=== PATIENT | female | born 1985 | race Caucasian/White ===

== ENCOUNTER 2019-02-22 09:32 | Emergency (ER) | payer BC ==
[2019-02-22 09:55] VITALS: RESP 18
--- NOTE | 2019-02-22 10:00 | ED ---
Neuro HPI - General Chief Complaint: Neuro Symptoms/Deficit Stated Complaint: Facial paralysis Time Seen by Provider: 02/22/19 09:45 Source: patient, family, RN notes reviewed Mode of arrival: ambulatory Limitations: no limitations - History of Present Illness Is the patient presenting with stroke symptoms?: No Initial Comments: This is a 34-year-old female who is currently 30 weeks with her first child who has he only has History of a tonsillectomy in the past who presents with complaints of waking up this morning with right facial droop. She's having trouble closing her right eye she states it feels somewhat dry and she has some trouble with holding food and fluid in her mouth. No weakness or arms or legs no headache blurry vision nausea vomiting fevers chills sweats or other symptoms no recent cold symptoms she states no other modifying factors - Related Data Home Medications: Home Medications Medication Instructions Recorded Confirmed Pnv,Calcium 72/Iron/Folic Acid 1 tab PO DAILY 02/22/19 02/22/19 [ Plus Tablet] Previous Rx's Medication Instructions Recorded predniSONE 30 mg PO BID #14 tab 02/22/19 valACYclovir HCL [Valacyclovir] 1,000 mg PO Q8HR #21 tab 02/22/19 Allergies/Adverse Reactions: Allergies Allergy/AdvReac Type Severity Reaction Status Date / Time hydrocodone [From Vicodin] AdvReac Unknown Verified 02/22/19 10:53 Review of Systems ROS Statement: Those systems with pertinent positive or pertinent negative responses have been documented in the HPI. ROS Other: All systems not noted in ROS Statement are negative. General Exam - General Exam Comments Initial Comments: This is a well-developed well-nourished awake alert oriented 3 female Limitations: no limitations General appearance: alert, anxious Head exam: Present: atraumatic, other (Evidence a right facial palsy with the forehead included.) Eye exam: Present: normal appearance, PERRL, EOMI. Absent: scleral icterus, conjunctival injection, periorbital swelling ENT exam: Present: normal exam, mucous membranes moist Neck exam: Present: normal inspection. Absent: tenderness, meningismus, lymphad enopathy Respiratory exam: Present: normal lung sounds bilaterally. Absent: respiratory distress, wheezes, rales, rhonchi, stridor Cardiovascular Exam: Present: regular rate, normal rhythm, normal heart sounds. Absent: systolic murmur, diastolic murmur, rubs, gallop, clicks GI/Abdominal exam: Present: soft, normal bowel sounds, other (Exam consistent with the stated gestational age). Absent: distended, tenderness, guarding, rebound, rigid Rectal exam: Present: deferred Extremities exam: Present: normal inspection, full ROM, normal capillary refill. Absent: tenderness, pedal edema, joint swelling, calf tenderness Back exam: Present: normal inspection Neurological exam: Present: alert, oriented X3, other (Right facial palsy consistent with Sena's palsy). Absent: CN II-XII intact Psychiatric exam: Present: normal affect, normal mood Skin exam: Present: warm, dry, intact, normal color. Absent: rash Stroke MDM - Lab Data Result diagrams: 02/22/19 09:47 02/22/19 09:47 Lab Results 02/22/19 02/22/19 02/22/19 Range/Units 09:47 09:47 09:47 WBC 11.7 H (3.8-10.6) k/uL RBC 4.35 (3.80-5.40) m/uL Hgb 13.2 (11.4-16.0) gm/dL Hct 37.8 (34.0-46.0) % MCV 86.8 (80.0-100.0) fL MCH 30.3 (25.0-35.0) pg MCHC 34.9 (31.0-37.0) g/dL RDW 13.8 (11.5-15.5) % Plt Count 294 (150-450) k/uL Neutrophils % 82 % Lymphocytes % 13 % Monocytes % 4 % Eosinophils % 0 % Basophils % 0 % Neutrophils # 9.6 H (1.3-7.7) k/uL Lymphocytes # 1.5 (1.0-4.8) k/uL Monocytes # 0.4 (0-1.0) k/uL Eosinophils # 0.1 (0-0.7) k/uL Basophils # 0.0 (0-0.2) k/uL PT 9.8 (9.0-12.0) sec INR 0.9 (<1.2) APTT 25.7 (22.0-30.0) sec Sodium 137 (137-145) mmol/L Potassium 4.3 (3.5-5.1) mmol/L Chloride 107 (98-107) mmol/L Carbon Dioxide 21 L (22-30) mmol/L Anion Gap 9 mmol/L BUN 10 (7-17) mg/dL Creatinine 0.65 (0.52-1.04) mg/dL Est GFR (CKD-EPI)AfAm >90 (>60 ml/min/1.73 sqM) Est GFR (CKD-EPI)NonAf >90 (>60 ml/min/1.73 sqM) Glucose 91 (74-99) mg/dL Calcium 9.2 (8.4-10.2) mg/dL Magnesium 1.6 (1.6-2.3) mg/dL Total Bilirubin 0.3 (0.2-1.3) mg/dL AST 17 (14-36) U/L ALT 16 (9-52) U/L Alkaline Phosphatase 71 (38-126) U/L Creatine Kinase 31 (30-135) U/L Troponin I (0.000-0.034) ng/mL Total Protein 6.4 (6.3-8.2) g/dL Albumin 3.3 L (3.5-5.0) g/dL 02/22/19 Range/Units 09:47 WBC (3.8-10.6) k/uL RBC (3.80-5.40) m/uL Hgb (11.4-16.0) gm/dL Hct (34.0-46.0) % MCV (80.0-100.0) fL MCH (25.0-35.0) pg MCHC (31.0-37.0) g/dL RDW (11.5-15.5) % Plt Count (150-450) k/uL Neutrophils % % Lymphocytes % % Monocytes % % Eosinophils % % Basophils % % Neutrophils # (1.3-7.7) k/uL Lymphocytes # (1.0-4.8) k/uL Monocytes # (0-1.0) k/uL Eosinophils # (0-0.7) k/uL Basophils # (0-0.2) k/uL PT (9.0-12.0) sec INR (<1.2) APTT (22.0-30.0) sec Sodium (137-145) mmol/L Potassium (3.5-5.1) mmol/L Chloride (98-107) mmol/L Carbon Dioxide (22-30) mmol/L Anion Gap mmol/L BUN (7-17) mg/dL Creatinine (0.52-1.04) mg/dL Est GFR (CKD-EPI)AfAm (>60 ml/min/1.73 sqM) Est GFR (CKD-EPI)NonAf (>60 ml/min/1.73 sqM) Glucose (74-99) mg/dL Calcium (8.4-10.2) mg/dL Magnesium (1.6-2.3) mg/dL Total Bilirubin (0.2-1.3) mg/dL AST (14-36) U/L ALT (9-52) U/L Alkaline Phosphatase (38-126) U/L Creatine Kinase (30-135) U/L Troponin I <0.012 (0.000-0.034) ng/mL Total Protein (6.3-8.2) g/dL Albumin (3.5-5.0) g/dL Past Medical History Additional Past Medical History / Comment(s): gestational diabetes History of Any Multi-Drug Resistant Organisms: None Reported Past Surgical History: Tonsillectomy Past Psychological History: No Psychological Hx Reported Smoking Status: Current every day smoker Past Alcohol Use History: None Reported Past Drug Use History: None Reported Course Vital Signs 02/22/19 02/22/19 02/22/19 09:34 09:51 10:25 Temperature 98.0 F Pulse Rate 101 H 75 80 Respiratory 19 18 18 Rate Blood Pressure 141/83 147/83 132/93 O2 Sat by Pulse 100 100 100 Oximetry - Reevaluation(s) Reevaluation #1: 02/22/19 11:16 Patient's had no further symptoms she still has the right facial droop consistent with Sena's palsy. I did a long discussion with her and her family regarding findings. I did discuss case also with Dr. Olivas is covering Dr. Waller today. Visual be placed on antivirals as well as steroids. She will follow-up with Dr. Waller next week today being Monday. Return if any problems. Patient did have monitoring which was within normal limits. Disposition Clinical Impression: Sena's palsy complicating in third trimester Disposition: HOME SELF-CARE Condition: Good Instructions (If sedation given, give patient instructions): (ED), Sena Palsy (ED) Additional Instructions: Take medications as directed, take her right eye shut when necessary. Prescriptions: predniSONE 30 mg PO BID #14 tab valACYclovir HCL [Valacyclovir] 1,000 mg PO Q8HR #21 tab Is patient prescribed a controlled substance at d/c from ED?: No Referrals: Ce Tafyoa MD [Primary Care Provider] - 1-2 days
[2019-02-22 10:25] LABS: INR 0.9 (<1.2); Partial Thromboplastin Time 25.7 sec (22.0-30.0); Prothrombin Time 9.8 sec (9.0-12.0)
[2019-02-22 10:28] LABS: ALT 16 U/L (9-52); AST 17 U/L (14-36); African American GFR (CKD) >90 (>60 ml/min/1.73 sqM); Albumin 3.3 g/dL (3.5-5.0); Alkaline Phosphatase 71 U/L (38-126); Anion Gap 9 mmol/L; Blood Urea Nitrogen 10 mg/dL (7-17); Calcium 9.2 mg/dL (8.4-10.2); Carbon Dioxide 21 mmol/L (22-30); Chloride 107 mmol/L (98-107); Creatine Kinase 31 U/L (30-135); Glucose 91 mg/dL (74-99); Magnesium 1.6 mg/dL (1.6-2.3); Non-African American GFR(CKD) >90 (>60 ml/min/1.73 sqM); Potassium 4.3 mmol/L (3.5-5.1); Sodium 137 mmol/L (137-145); Total Bilirubin 0.3 mg/dL (0.2-1.3); Total Protein 6.4 g/dL (6.3-8.2)
[2019-02-22 10:40] LABS: Basophils % (A) 0 %; Eosinophils # (A) 0.1 k/uL (0-0.7); Eosinophils % (A) 0 %; HCT 37.8 % (34.0-46.0); HGB 13.2 gm/dL (11.4-16.0); Lymphocytes # (A) 1.5 k/uL (1.0-4.8); Lymphocytes % (A) 13 %; MCH 30.3 pg (25.0-35.0); MCHC 34.9 g/dL (31.0-37.0); MCV 86.8 fL (80.0-100.0); Mean Platelet Volume 6.9; Monocytes # (A) 0.4 k/uL (0-1.0); Monocytes % (A) 4 %; Neutrophils # (A) 9.6 k/uL (1.3-7.7); Neutrophils % (A) 82 %; Platelet Count 294 k/uL (150-450); RBC 4.35 m/uL (3.80-5.40); RDW 13.8 % (11.5-15.5); WBC 11.7 k/uL (3.8-10.6)
[2019-02-22] MEDS ORDERED: predniSONE 50 MG TAB PO STA ×2 (11:26→11:29)
[2019-02-22] MEDS ORDERED: predniSONE 10 MG TAB PO STA (11:31)
[2019-02-22 11:55] VITALS: BP 128/77; PULSE 72; TEMP 98
== END 2019-02-22 11:54 | disposition home or self-care (01) ==
LOC: EC 09:32
DX: O99.353 Diseases of the nervous system complicating pregnancy, third trimester (principal); G51.0 Bell's palsy; O99.333 Smoking (tobacco) complicating pregnancy, third trimester; F17.200 Nicotine dependence, unspecified, uncomplicated; Z3A.30 30 weeks gestation of pregnancy; Z88.5 Allergy status to narcotic agent
CPT/HCPCS: 36415; 93005; 80053; 82550; 83735; 84484; 85025; 85610; 85730; 99284; J7512 ×2

== ENCOUNTER 2019-04-26 19:21 | Inpatient (IN) | payer BC, OTHER ==
[2019-04-26 20:02] LABS: Appearance,Urine Cloudy (Clear); Bacteria,Urine Occasional /hpf; Bilirubin,Urine Negative (Negative); Blood,Urine Negative (Negative); Color,Urine Yellow; Glucose,Urine (UA) Negative (Negative); Hyaline Casts,Urine 1 /lpf (0-2); Ketones,Urine Negative (Negative); Leukocyte Esterase,Urine Negative (Negative); Mucus,Urine Rare /hpf; Nitrite,Urine Negative (Negative); PH, Urine 6.5 (5.0-8.0); Protein,Urine 2+ (Negative); RBC,Urine 3 /hpf (0-5); Specific Gravity,Urine 1.028 (1.001-1.035); Squamous Epithelial Cell,Urine 25 /hpf (0-4); Urobilinogen,Urine <2.0 mg/dL (<2.0); WBC,Urine 3 /hpf (0-5)
[2019-04-26 20:09] LABS: Basophils # (A) 0.1 k/uL (0-0.2); Basophils % (A) 1 %; Eosinophils # (A) 0.1 k/uL (0-0.7); Eosinophils % (A) 1 %; HCT 35.9 % (34.0-46.0); HGB 12.2 gm/dL (11.4-16.0); Lymphocytes % (A) 20 %; MCH 29.5 pg (25.0-35.0); MCHC 34.1 g/dL (31.0-37.0); MCV 86.4 fL (80.0-100.0); Mean Platelet Volume 8.3; Monocytes # (A) 0.6 k/uL (0-1.0); Monocytes % (A) 6 %; Neutrophils # (A) 6.8 k/uL (1.3-7.7); Neutrophils % (A) 70 %; Platelet Count 217 k/uL (150-450); RBC 4.15 m/uL (3.80-5.40); RDW 14.8 % (11.5-15.5); WBC 9.8 k/uL (3.8-10.6)
[2019-04-26 20:22] LABS: ALT 22 U/L (4-34); AST 30 U/L (14-36); African American GFR (CKD) >90 (>60 ml/min/1.73 sqM); Blood Urea Nitrogen 18 mg/dL (7-17); LDH 472 U/L (313-618); Non-African American GFR(CKD) 89 (>60 ml/min/1.73 sqM); Uric Acid 7.8 mg/dL (3.7-7.4)
[2019-04-26] MEDS ORDERED: CARBOPROST TROMETHAMINE 250 MCG/ML 1 ML AMP IM PRN (20:33)
[2019-04-26] MEDS ORDERED: AMPICILLIN 2,000 MG in SODIUM CHLORIDE 0.9% 100 ML IVPB STA (20:33)
[2019-04-26] MEDS ORDERED: TERBUTALINE 1 MG/ML VIAL SQ PRN (20:33)
[2019-04-26] MEDS ORDERED: LIDOCAINE 0.5% (PF) 5 MG/ML (50 ML SDV) SQ PRN (20:33)
[2019-04-26] MEDS ORDERED: METHYLERGONOVINE 0.2 MG/ML 1 ML AMP IM PRN (20:33)
[2019-04-26] MEDS ORDERED: OXYTOCIN 10 UNIT/ML 1 ML VIAL IM PRN (20:33)
[2019-04-26] MEDS ORDERED: hydrALAZINE HCL 20 MG/ML 1 ML VIAL IVP STA (20:35)
[2019-04-26 20:45] LABS: Protein/Creatinine Ratio,Urine 0.38
[2019-04-26] MEDS ORDERED: OXYTOCIN 30 UNITS/500 ML NS 30 UNIT in SALINE 1 500ML.BAG IV SCH (20:45)
[2019-04-26] MEDS: LACTATED RINGERS 1,000 ML IV SCH (21:25)
[2019-04-26] MEDS ORDERED: CITRIC ACID-SODIUM CITRATE 15 ML CUP PO ONE (21:44)
[2019-04-26] MEDS ORDERED: ceFAZolin 3 GM in SODIUM CHLORIDE 0.9% 100 ML IVPB ONE (22:00)
[2019-04-26 22:33] LABS: Glucose,Whole Blood 73 mg/dL (75-99)
[2019-04-26] MEDS ORDERED: ONDANSETRON 4 MG/2 ML VIAL ONE (23:35)
[2019-04-26] MEDS ORDERED: MORPHINE SULFATE (PF) 0.3 MG/0.3 ML SYR ONE (23:35)
[2019-04-26] MEDS ORDERED: PHENYLEPHRINE-0.9% NACL SYG 1 MG/10 ML SYRINGE ONE (23:35)
[2019-04-26] MEDS ORDERED: WATER FOR INJECTION, STERILE 10 ML VIAL IV ONE (23:35)
[2019-04-26] MEDS ORDERED: OXYTOCIN 10 UNIT/ML 1 ML VIAL ONE (23:35)
[2019-04-26] MEDS ORDERED: ePHEDrine SULFATE/0.9% NACL/PF 50 MG/5 ML SYRINGE IV ONE (23:35)
[2019-04-26 23:51] LABS: Amphetamine Screen,Urine Not Detected (NotDetected); Barbiturate Screen,Urine Not Detected (NotDetected); Benzodiazepines Screen,Urine Not Detected (NotDetected); Cocaine Screen,Urine Not Detected (NotDetected); Methadone Screen, Urine Not Detected (NotDetected); Opiate Screen,Urine Not Detected (NotDetected); Oxycodone Screen, Urine Not Detected (NotDetected); Phencyclidine Screen,Urine Not Detected (NotDetected); Tricyclic Antidepressant,Urine Not Detected (NotDetected); Urn Cannabinoid Scrn Not Detected (NotDetected)
[2019-04-27] MEDS ORDERED: ONDANSETRON 4 MG/2 ML VIAL IVP PRN (00:25)
[2019-04-27] MEDS ORDERED: IBUPROFEN 600 MG TAB PO PRN (00:25)
[2019-04-27] MEDS ORDERED: diphenhydrAMINE 50 MG CAP PO PRN (00:25)
[2019-04-27] MEDS ORDERED: ZOLPIDEM 5 MG TAB PO PRN (00:25)
[2019-04-27] MEDS ORDERED: diphenhydrAMINE 25 MG CAP PO PRN (00:25)
[2019-04-27] MEDS ORDERED: HYDROcodone/APAP 5-325MG 1 EACH TAB PO PRN (00:25)
[2019-04-27] MEDS ORDERED: METOCLOPRAMIDE 5 MG/ML 2 ML VIAL IVP PRN (00:25)
[2019-04-27] MEDS ORDERED: ACETAMINOPHEN IV (For NPO) 1,000 MG in EMPTY BAG 1 BAG IVPB ONE (00:25)
[2019-04-27] MEDS ORDERED: NALOXONE 0.4 MG/ML 1 ML VIAL IV PRN (00:25)
[2019-04-27] MEDS ORDERED: diphenhydrAMINE 50 MG/ML 1 ML VIAL IVP PRN ×2 (00:25)
--- NOTE | 2019-04-27 00:26 | P.HPOB ---
History of Present Illness H&P Date: 04/26/19 Chief Complaint: IUP at 39 1/7 weeks, gestational hypertension This is a 33-year-old 1 para 0 at 39 and one sevenths weeks with an estimated due date of 05/02/2019. Patient has been receiving routine care since the first trimester. Patient is gestational diabetic with an estimated weight of 95 percentile. Patient does request a trial of labor. Patient in addition was diagnosed with a Sena's palsy and is on a baby aspirin currently. Patient presented to labor and delivery with complaints of decreased movement. Patient was noted to have elevated blood pressures on initial vitals 177/103, 170/105. Patient denies headache right upper quadrant pain or contractions. Patient is feeling movement now that she is on labor and delivery. Next On blood work shows a blood type of A+, rubella is immune, RPR is nonreactive, B surface antigen is negative, HIV is negative. Patient did have a positive drug screen for THC on 10/16/18. As stated above she was diagnosed with gestational diabetes with this . Blood sugars have been reasonably well controlled. Patient had an ultrasound done on April 03 of an estimated weight of 95th percentile and an DANTE of 19. In addition patient was noted to be group beta strep positive on 04/11/2019. Review of Systems Constitutional: Denies chills, Denies fatigue, Denies fever Ears, nose, mouth and throat: Denies headache Cardiovascular: Reports leg edema Respiratory: Denies dyspnea Gastrointestinal: Denies constipation, Denies diarrhea, Denies nausea, Denies vomiting Genitourinary: Reports Past Medical History Additional Past Medical History / Comment(s): gestational diabetes, sena's palsy History of Any Multi-Drug Resistant Organisms: None Reported Past Surgical History: Tonsillectomy Past Anesthesia/Blood Transfusion Reactions: No Reported Reaction Past Psychological History: No Psychological Hx Reported Smoking Status: Former smoker Past Alcohol Use History: None Reported Past Drug Use History: None Reported Medications and Allergies Home Medications Medication Instructions Recorded Confirmed Type Pnv,Calcium 72/Iron/Folic Acid 1 tab PO DAILY 02/22/19 04/26/19 History [ Plus Tablet] Allergies Allergy/AdvReac Type Severity Reaction Status Date / Time hydrocodone [From Vicodin] AdvReac Mild Nausea Verified 04/26/19 19:40 Exam Osteopathic Statement: *. No significant issues noted on an osteopathic structural exam other than those noted in the History and Physical/Consult. Intake and Output 04/26/19 04/26/19 04/26/19 06:59 14:59 22:59 Other: Weight 127.459 kg Targeted physical exam is performed in this date and epic anesthesia analyst a well-nourished well-developed obese female in no acute distress, breathing is noted to be nonlabored heart has regular rhythm, abdomen is noted to be obese and gravid, on heart tones are noted to be category 1 and she is not vanesa. On cervical exam she is /ballotable. Results Result Diagrams: 04/26/19 19:45 04/26/19 19:45 Abnormal Lab Results - Last 24 Hours (Table) 04/26/19 04/26/19 04/26/19 Range/Units 19:45 19:45 19:45 BUN 18 H (7-17) mg/dL Uric Acid 7.8 H (3.7-7.4) mg/dL Urine Appearance Cloudy H (Clear) Urine Protein 2+ H (Negative) Ur Squamous Epith Cells 25 H (0-4) /hpf Urine Bacteria Occasional H (None) /hpf Urine Mucus Rare H (None) /hpf U Random Total Protein 77 H (<12) mg/dL Assessment and Plan (1) Term Current Visit: Yes Status: Acute Code(s): Z34.90 - ENCNTR FOR SUPRVSN OF NORMAL , UNSP, UNSP TRIMESTER SNOMED Code(s): 72183708 (2) Preeclampsia Current Visit: Yes Status: Acute Code(s): O14.90 - UNSPECIFIED PRE- ECLAMPSIA, UNSPECIFIED TRIMESTER SNOMED Code(s): 904132321 (3) Positive GBS test Current Visit: Yes Status: Acute Code(s): B95.1 - STREPTOCOCCUS, GROUP B, CAUSING DISEASES CLASSD ELSR SNOMED Code(s): 793336540 Plan: Patient is admitted to labor and delivery for induction of labor secondary to mild preeclampsia. Preeclampsia labs were completed uric acid was noted to be elevated at 7.8, urine protein creatinine ratio was noted to be 0.4 consistent with the diagnosis of preeclampsia. Induction of labor with Pitocin is discussed with patient, hydralazine as needed for elevated blood pressures is reviewed in detail as well. Given patient's history of large for gestational age is discussed with the patient possibility of . Patient states understanding and wishes trial of labor. IV Pitocin will be begun per hospital protocol.
[2019-04-27] MEDS ORDERED: OXYTOCIN 20 UNITS/1000 ML NS 1,000 ML IV SCH (00:30)
--- NOTE | 2019-04-27 00:32 | P.OP ---
Date of Procedure: 04/27/19 Preoperative Diagnosis: IUP at 39 and 1/sevenths weeks, preeclampsia with severe features remote from delivery Postoperative Diagnosis: Same plus meconium-stained amniotic fluid Procedure(s) Performed: Primary low transverse section Anesthesia: spinal Surgeon: Kassie Olivas Utility Technician #1: Shola Rodriguez Estimated Blood Loss (ml): 700 IV fluids (ml): 1,500 Urine output (ml): 75 Pathology: other (Placenta) Condition: stable Disposition: PACU Indications for Procedure: This pleasant 33-year-old 1 para 0 presented to labor and delivery with complaints of decreased movement. Initial blood pressure was noted to be 177/103, subsequent blood pressures remained the same. After 1 dose of hydralazine she was noted to have a decrease in her blood pressures which soon elevated back up to 170s over 90s. Decision at that time was made to proceed with primary given her preeclampsia with severe features remote from delivery. Plan was discussed with patient all QUESTIONS were answered and she agreed. Operative Findings: Normal uterus tubes and ovaries were appreciated, liveborn male delivered at 2357, 8 lbs. 5 oz. with Apgars of 8 and 8 at one and 5 minutes respectively. Thick meconium was noted. Description of Procedure: Patient was taken back to the operating suite where spinal anesthesia was found be adequate by the anesthesia department. She was then prepped and draped in the normal sterile fashion in dorsal supine position. A Pfannenstiel skin incision was made with the scalpel and carried through the underlying layer of fascia. The fascia was then incised in the midline and the incision was extended laterally. The superior aspect of the fascial incision was then grasped meseret clamps, elevated and underlying rectus muscles dissected off sharply. Attention was then turned to the inferior aspect of the fascial incision which was grasped meseret clamps, elevated and underlying rectus muscles dissected off sharply once again. The rectus muscles were in the midline the peritoneum was identified and entered. The retractor was placed into the abdomen the vesicouterine peritoneum was identified and a bladder flap was created using sharp and blunt dissection. Hysterotomy incision was made with the scalpel amniotomy was performed and meconium fluid was noted. The patella was delivered atraumatically the umbilical cord was doubly clamped and cut and the infant was handed off to awaiting RN. A spontaneous cry was noted at . The placenta was then removed manually and the uterus was cleared of all clots and debris. The uterine incision was then closed with 0 Vicryl in a running locked fashion 2. Hemostasis was appreciated. The pelvis was then irrigated, and hysterotomy incision was inspected and found be hemostatic. The uterus was then returned to the abdomen. The retractor was then removed once again hemostasis was appreciated on the hysterotomy incision. The gutters were then cleared of all clots and debris. The peritoneum was then loosely reapproximated. The fascia was closed 0 Vicryl in a running fashion from one lateral edge the midline and the other lateral edge the midline. Subcutaneous tissue was irrigated and found to be hemostatic. This was then closed with 3-0 Vicryl in a running fashion. The skin was then closed with 4-0 Vicryl in a subarticular fashion. Suture strips and sterile dressings were applied. All counts are correct 2 patient and infant tolerated delivery well and are resting comfortably.
[2019-04-27] MEDS ORDERED: IBUPROFEN IV 800 MG in SODIUM CHLORIDE 0.9% 250 ML IV ONE (01:00)
[2019-04-27] MEDS: LABETALOL 100 MG TAB PO SCH ×2 (01:09→09:19)
[2019-04-27] MEDS: SENNOSIDES-DOCUSATE SODIUM 1 EACH TAB PO SCH ×2 (09:19→20:20)
--- NOTE | 2019-04-27 11:02 | P.PNOBGPC ---
Subjective - Subjective Principal diagnosis: POD 1 LTCS, severe preeclampsia Interval history: Patient did well overnight. She responded to 100 mg of labetalol and blood pressures this morning were slightly elevated again 166/98 therefore labetalol 100 mg was repeated at 9 AM with recheck blood pressure 154/90. ( Initial dose given at 1 AM. ) Patient denies headache but does admit to nausea vomiting this morning. Patient had her Harvey catheter removed around 9 AM and has yet to void. Patient states her pain is well-controlled. She states her lochia is minimal. She is breast-feeding. Patient reports: Reports appetite normal, Reports voiding normally, Reports pain well controlled, Reports ambulating normally, Reports nauseated Young: doing well, nursing well Objective - Vital Signs Latest vital signs: Vital Signs Temp Pulse Resp BP Pulse Ox 04/27/19 08:00 98.2 F 85 16 166/98 97 04/27/19 04:00 98.2 F 96 16 158/89 94 L 04/27/19 02:31 97.6 F 80 16 152/74 97 04/27/19 02:01 114 H 18 139/75 98 04/27/19 01:30 88 16 154/74 98 04/27/19 01:16 88 18 154/70 98 04/27/19 01:01 88 18 160/77 98 04/27/19 00:46 96 18 129/63 97 04/27/19 00:30 97.7 F 97 18 124/65 96 04/26/19 22:08 97.7 F 78 18 177/103 100 04/26/19 20:45 97.7 F 78 18 177/103 100 Intake and Output 04/26/19 04/27/19 04/27/19 22:59 06:59 14:59 Intake Total 150 1000 Output Total 200 450 Balance 150 800 -450 Intake: Intake, IV Titration 150 1000 Amount Ampicillin 2,000 mg In 50 Sodium Chloride 0.9% 100 ml @ 200 mls/hr IVPB ONCE STA Rx#:[id number] Oxytocin 20 Units/1000 ml 1000 Ns 1,000 ml @ Per Protocol IV .Q0M [facility] Rx#: [id number] ceFAZolin 3 gm In Sodium 100 Chloride 0.9% 100 ml @ 200 mls/hr IVPB ONCE ONE Rx#:[id number] Output: Urine 200 450 Uretheral (Harvey) 450 Other: Voiding Method Indwelling Catheter # Voids 2 # Emeses 1 Weight 127.459 kg - Exam Extremities: Present: normal, edema Abdomen: Present: normal appearance Incision: Present: normal, intact Uterus: Present: normal - Labs Labs: Abnormal Lab Results - Last 24 Hours (Table) 04/26/19 04/26/19 04/26/19 Range/Units 19:45 19:45 19:45 BUN 18 H (7-17) mg/dL POC Glucose (mg/dL) (75-99) mg/dL Uric Acid 7.8 H (3.7-7.4) mg/dL Urine Appearance Cloudy H (Clear) Urine Protein 2+ H (Negative) Ur Squamous Epith Cells 25 H (0-4) /hpf Urine Bacteria Occasional H (None) /hpf Urine Mucus Rare H (None) /hpf U Random Total Protein 77 H (<12) mg/dL 04/26/19 Range/Units 22:31 BUN (7-17) mg/dL POC Glucose (mg/dL) 73 L (75-99) mg/dL Uric Acid (3.7-7.4) mg/dL Urine Appearance (Clear) Urine Protein (Negative) Ur Squamous Epith Cells (0-4) /hpf Urine Bacteria (None) /hpf Urine Mucus (None) /hpf U Random Total Protein (<12) mg/dL Assessment and Plan (1) Term Current Visit: Yes Status: Acute Code(s): Z34.90 - ENCNTR FOR SUPRVSN OF NORMAL , UNSP, UNSP TRIMESTER SNOMED Code(s): 94785185 (2) Preeclampsia Current Visit: Yes Status: Acute Code(s): O14.90 - UNSPECIFIED PRE- ECLAMPSIA, UNSPECIFIED TRIMESTER SNOMED Code(s): 662660617 (3) Positive GBS test Current Visit: Yes Status: Acute Code(s): B95.1 - STREPTOCOCCUS, GROUP B, CAUSING DISEASES CLASSD ELSR SNOMED Code(s): 602010406 Plan: We will increase oral labetalol to 200 mg twice daily given her a.m. blood pressures. Recheck preeclampsia labs this morning in addition. Will plan to continue routine care.
[2019-04-27 11:42] LABS: HCT 34.7 % (34.0-46.0); HGB 11.9 gm/dL (11.4-16.0); MCH 30.3 pg (25.0-35.0); MCHC 34.4 g/dL (31.0-37.0); MCV 88.1 fL (80.0-100.0); Mean Platelet Volume 7.7; Platelet Count 191 k/uL (150-450); RBC 3.94 m/uL (3.80-5.40); RDW 14.9 % (11.5-15.5); WBC 13.1 k/uL (3.8-10.6)
[2019-04-27 11:54] LABS: Uric Acid 7.5 mg/dL (3.7-7.4)
[2019-04-27 16:22] VITALS: RESP 16
[2019-04-27] MEDS: ACETAMINOPHEN TAB 325 MG TAB PO PRN ×2 (17:59→23:41)
[2019-04-27] MEDS: PRENATAL VIT-IRON-FOLIC ACID 1 EACH CAP PO SCH (19:08)
[2019-04-27] MEDS: AMPICILLIN 1,000 MG in SODIUM CHLORIDE 0.9% 50 ML IVPB SCH ×2 (20:04→20:22)
[2019-04-27] MEDS: LABETALOL 200 MG TAB PO SCH (20:12)
[2019-04-27] MEDS: LACTATED RINGERS 1,000 ML IV SCH ×3 (20:20→22:10)
--- NOTE | 2019-04-27 21:23 | P.PN ---
Progress Note - Text 05/25 1216pm 83-year-old female status post with a spinal and Duramorph. Patient was seen and evaluated for pain control this afternoon, patient has a VAS of 5 complains of mild pruritus. She also had complains about nausea. I showed her that both nausea and pruritus should subsidize by the end of the day.
[2019-04-28] MEDS: LACTATED RINGERS 1,000 ML IV SCH (01:27)
[2019-04-28 07:19] LABS: Basophils # (A) 0.1 k/uL (0-0.2); Basophils % (A) 1 %; Eosinophils % (A) 0 %; HGB 11.4 gm/dL (11.4-16.0); Lymphocytes # (A) 1.2 k/uL (1.0-4.8); Lymphocytes % (A) 11 %; MCH 29.5 pg (25.0-35.0); MCHC 33.5 g/dL (31.0-37.0); MCV 87.9 fL (80.0-100.0); Mean Platelet Volume 7.5; Monocytes # (A) 0.5 k/uL (0-1.0); Monocytes % (A) 5 %; Neutrophils # (A) 8.7 k/uL (1.3-7.7); Neutrophils % (A) 82 %; Platelet Count 187 k/uL (150-450); RBC 3.86 m/uL (3.80-5.40); RDW 15.2 % (11.5-15.5); WBC 10.6 k/uL (3.8-10.6)
[2019-04-28] MEDS: SENNOSIDES-DOCUSATE SODIUM 1 EACH TAB PO SCH (07:40)
[2019-04-28] MEDS: ACETAMINOPHEN TAB 325 MG TAB PO PRN ×2 (07:40→14:53)
[2019-04-28] MEDS: LABETALOL 200 MG TAB PO SCH (07:41)
[2019-04-28 07:58] VITALS: PULSE 86; TEMP 98
[2019-04-28 09:43] VITALS: BP 128/77
[2019-04-28] MEDS: PRENATAL VIT-IRON-FOLIC ACID 1 EACH CAP PO SCH (09:43)
--- NOTE | 2019-04-28 10:39 | P.DS ---
Providers Date of admission: 04/26/19 20:32 Expected date of discharge: 04/28/19 Attending physician: Krys Waller Primary care physician: Stated None - Discharge Diagnosis(es) (1) Term Current Visit: Yes Status: Acute (2) Preeclampsia Current Visit: Yes Status: Acute (3) Positive GBS test Current Visit: Yes Status: Acute (4) S/P section Current Visit: Yes Status: Acute Hospital Course: This pleasant 33-year-old 1 para 0 at 39 and 1/sevenths weeks presented to labor and delivery with complaints of decreased movement initial blood pressures were noted to be 177/103 blood pressures remained high. After 1 dose of hydralazine she noted decrease in her blood pressure but soon elevated back to 170s over 90s. Decision at that time was made to proceed with primary low transverse section secondary to severe preeclampsia with remote from delivery. Patient was taken back to the operating suite and was performed without difficulty. Patient delivered a liveborn male infant at 2357, 8 lbs. 5 oz. with Apgars of 8 and 8 at one and 5 metastases respectively. For further details on the please see the operative report. Patient's postoperative course has been well. She was placed on labetalol 200 mg twice daily which has controlled her blood pressures nicely, highest being 150s over 90s. On this postop day #2 she is ambulating and voiding without difficulty. She is breast-feeding without difficulty. She is tolerating a regular diet without nausea or vomiting. Her pain is well-controlled with oral Tylenol Patient Condition at Discharge: Good Plan - Discharge Summary New Discharge Prescriptions: No Action Pnv,Calcium 72/Iron/Folic Acid [ Plus Tablet] 1 tab PO DAILY Discharge Medication List Pnv,Calcium 72/Iron/Folic Acid [ Plus Tablet] 1 tab PO DAILY 02/22/19 [History]
== END 2019-04-28 16:00 | disposition home or self-care (01) | DRG 787 ==
LOC: FBPOP 19:21 → 4FBP 20:32
PROVIDERS: ADMIT Obstetrics & Gynecology Obstetrics; ATTEND Obstetrics & Gynecology
PROC: 10D00Z1 Extraction of Products of Conception, Low, Open Approach (ICD-10-PCS; principal; 2019-04-27)
DX: O14.14 Severe pre-eclampsia complicating childbirth (principal); O99.354 Diseases of the nervous system complicating childbirth; O24.429 Gestational diabetes mellitus in childbirth, unspecified control; O99.214 Obesity complicating childbirth; E66.9 Obesity, unspecified; G51.0 Bell's palsy; O36.60X0 Maternal care for excessive fetal growth, unspecified trimester, not applicable or unspecified; O99.824 Streptococcus B carrier state complicating childbirth; O36.8130 Decreased fetal movements, third trimester, not applicable or unspecified; O77.0 Labor and delivery complicated by meconium in amniotic fluid; Z37.0 Single live birth; Z3A.39 39 weeks gestation of pregnancy; L29.9 Pruritus, unspecified; Z79.899 Other long term (current) drug therapy; Z87.891 Personal history of nicotine dependence; Z98.890 Other specified postprocedural states; Z88.5 Allergy status to narcotic agent
CPT/HCPCS: 59025; 80306; 81001; 82565; 82570; 83615; 84156; 84450; 84460; 84520; 84550; 85025; 85027; 99215